=== PATIENT | male | born 1970 | race Caucasian/White ===

== ENCOUNTER 2018-03-08 18:22 | Emergency (ER) | payer BC ==
--- NOTE | 2018-03-08 21:00 | RAD ---
RIGHT ANKLE THREE VIEWS: HISTORY: A 47-year-old male with a history of right ankle pain following an injury. Fell in a hole. FINDINGS: Lateral soft tissue swelling. Achilles and plantar calcaneal enthesophytes. Mild ankle joint degene rative changes. No acute fracture or dislocation. IMPRESSION: Minimal lateral soft tissue swelling. Degenerative and osteoarthrosis changes. No acute fracture or dislocation. POS: [facility]
== END 2018-03-08 19:17 | disposition home or self-care (01) ==
LOC: NAV ERS 18:22
DX: S93.401A Sprain of unspecified ligament of right ankle, initial encounter (principal); E06.3 Autoimmune thyroiditis; K90.0 Celiac disease; I10 Essential (primary) hypertension; Z87.891 Personal history of nicotine dependence; Z79.899 Other long term (current) drug therapy; X50.0XXA Overexertion from strenuous movement or load, initial encounter

== ENCOUNTER 2018-09-03 16:25 | Emergency (ER) | payer BC ==
[2018-09-03 17:08] LABS: #Basophils 0.1 thou/uL (0.0-0.2); #Eosinphils 0.1 thou/uL (0.0-0.7); #Lymphocytes 2.6 thou/uL (1.20-3.40); #Monocytes 0.8 thou/uL (0.11-0.59); #Neutrophils 4.1 thou/uL (1.40-6.50); %Basophils 1.2 % (0.0-1.0); %Eosinophils 1.7 % (0.0-10.0); %Lymphocytes 33.2 % (21.0-51.0); %Monocytes 10.9 % (0.0-10.0); %Neutrophils 53.1 % (42.0-75.0); Hemoglobin 12.3 g/dL (14.0-18.0); Mean Corpuscular HGB CONC 30.9 g/dL (32.0-36.0); Mean Corpuscular Hemoglobin 25.4 pg (27.0-31.0); Mean Corpuscular Volume 82.2 fL (78.0-98.0); Mean Platelet Volume 8.9 fL (7.4-10.4); Platelet Count 246 thou/uL (130-400); RBC Distribution Width 15.3 % (11.5-14.5); Red Blood Cell (RBC) Count 4.86 mill/uL (4.70-6.10); White Blood Cell (WBC) Count 7.8 thou/uL (4.8-10.8)
[2018-09-03 17:24] LABS: ALT (SGPT) 46 U/L (8-55); AST (SGOT) 34 U/L (5-34); Albumin 4.1 g/dL (3.5-5.0); Alkaline Phosphatase 64 U/L (40-150); Anion Gap 14 mmol/L (10-20); BUN (Urea Nitrogen) 15 mg/dL (8.9-20.6); Bilirubin, Total 0.3 mg/dL (0.2-1.2); Calc. Creatinine Clearance 0 mL/min (70-130); Calcium 8.8 mg/dL (7.8-10.44); Carbon Dioxide 22 mmol/L (22-29); Chloride 106 mmol/L (98-107); Estimated GFR-MDRD Greater than 90; Globulin 2.4 g/dL (2.4-3.5); Glucose 92 mg/dL (70-105); Lipase 38 U/L (8-78); Potassium 3.8 mmol/L (3.5-5.1); Protein, Total 6.5 g/dL (6.0-8.3); Sodium 138 mmol/L (136-145)
--- NOTE | 2018-09-03 17:29 | RAD ---
RADIOGRAPH CHEST 2 VIEWS: DATE: 09/03/2018 HISTORY: 47-year-old male with chest pain FINDINGS: There is no airspace density, pulmonary edema, pleural effusion, pneumothorax, or cardiomegaly. IMPRESSION: No acute cardiopulmonary findings.
== END 2018-09-03 18:05 | disposition home or self-care (01) ==
LOC: NAV ERS 16:25
DX: K22.4 Dyskinesia of esophagus (principal); I10 Essential (primary) hypertension; Z87.891 Personal history of nicotine dependence; Z79.899 Other long term (current) drug therapy
CPT/HCPCS: 71046; 80053; 83690; 84484; 85025; 93005